=== PATIENT | male | born 1995 | race Native Hawaiian/Other Pacific Islander ===

== ENCOUNTER 2017-09-27 19:21 | Emergency (ER) | payer OTHER ==
[~2017-09-27] VITALS: Ht 165.1 cm; Wt 81.6 kg
[2017-09-27 20:26] VITALS: BP 161/84; TEMP 97.9
== END 2017-09-27 20:29 | disposition home or self-care (01) ==
LOC: ED 19:21
DX: G47.00 Insomnia, unspecified (principal)
CPT/HCPCS: 99281

== ENCOUNTER 2017-11-03 11:00 | Emergency (ER) | payer OTHER ==
[~2017-11-03] VITALS: Ht 165.1 cm; Wt 68.0 kg
[2017-11-03 11:10] VITALS: TEMP 98.2
[2017-11-03 13:45] VITALS: BP 148/82
== END 2017-11-03 13:50 | disposition home or self-care (01) ==
LOC: ED 11:00
DX: J02.9 Acute pharyngitis, unspecified (principal); B34.9 Viral infection, unspecified; R50.9 Fever, unspecified
CPT/HCPCS: 87081; 87804; 87880; 99283

== ENCOUNTER 2018-10-20 13:18 | Emergency (ER) | payer OTHER ==
[~2018-10-20] VITALS: Ht 162.6 cm; Wt 70.3 kg
[2018-10-20 13:37] VITALS: BP 147/80; TEMP 98.2
[2018-10-20 15:11] LABS: PLATELET COUNT 187 K/uL (142-355)
[2018-10-20 15:15] LABS: POTASSIUM 3.8 mmol/L (3.6-5.2)
== END 2018-10-20 17:00 | disposition home or self-care (01) ==
LOC: ED 13:18
DX: M51.87 Other intervertebral disc disorders, lumbosacral region (principal); M47.897 Other spondylosis, lumbosacral region; W17.89XA Other fall from one level to another, initial encounter
CPT/HCPCS: 36415; 80053; 81000; 85027; 99283

== ENCOUNTER 2020-10-04 08:23 | Emergency (ER) | payer OTHER ==
[~2020-10-04] VITALS: Ht 165.1 cm; Wt 65.8 kg
[2020-10-04 09:30] VITALS: BP 128/72; TEMP 98.5
== END 2020-10-04 09:30 | disposition home or self-care (01) ==
LOC: ED 08:23
DX: S46.212A Strain of muscle, fascia and tendon of other parts of biceps, left arm, initial encounter (principal); X50.0XXA Overexertion from strenuous movement or load, initial encounter; Y92.89 Other specified places as the place of occurrence of the external cause
CPT/HCPCS: 99282